=== PATIENT | male | born 1985 | race Caucasian/White ===

== ENCOUNTER 2018-01-04 18:55 | Emergency (ER) | payer SELFPAY ==
[2018-01-04 19:00] VITALS: BP 144/84; PULSE 63; RESP 20; TEMP 36.6; O2SAT 98
[2018-01-04] MEDS: Tetracaine 0.5% 4 ML BTL (19:16)
--- NOTE | 2018-01-04 19:26 | ED.GENADUL_ITS ---
Discharge Plan Discharge Details Chief Complaint: EyeProblem Primary Care Provider: NONE,NONE ED Provider: Yordan Scott Home Meds and New Rx's Prescriptions: No Action No Known Home Meds RF: 0 Medical Decision Making 32-year-old male presents with right eye conjunctival injection after being poked in the eye with a stick yesterday. He has a negative Ronn sign. No evidence of foreign body persistently, but there is evidence of right lateral corneal abrasion outside the axis of vision. Discussed manage with him including use of erythromycin ointment. He stable for discharge. Return for any concerns. Tetanus booster given. HPI General Mode of arrival: ambulatory . Date/Time Provider Initiated Documentation: 01/04/18 19:15 . Limitations to Documentation: no limitations . Information obtained by: patient . History of Present Illness 32 year old M presents to the emergency department with the chief complaint of Right eye injury, described as moderate, Quality is described as aching, and is localized to the right. No relieving factors improve symptom(s), No exacerbating factors reported . 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 He returned yesterday and was struck in the right eye by a tree branch. Since that time he has mild pain that improved today associated with watery discharge. No other injury and patient has otherwise been well. He requires tetanus booster Related Data Home Medications Medication Instructions Recorded Confirmed Unknown [No Known Home Meds] 01/04/18 01/04/18 Allergies Allergy/AdvReac Type Severity Reaction Status Date / Time Sulfa (Sulfonamide Allergy Mild Skin Rash Unverified 01/04/18 19:06 Antibiotics) General Stated Complaint: EyeProblem COREY: 4 Review of Systems Review of Systems 8 systems reviewed and otherwise neg PFSH Social History Smoking/Tobacco Use Status: Never Exam Narrative Exam Narrative: GEN: awake, alert, oriented 3. Pleasant, well groomed, interactive. HEAD: Normocephalic, atraumatic ENT: Mucous membranes moist, oropharynx unremarkable, External ear exam unremarkable EYES: PERRL, EOMI, right conjunctival injection, there is negative Ronn sign, fluorescein exam reveals right lateral corneal abrasion without evidence of foreign body NECK: Full ROM, no IGLMAR, no menigismus EXT: Full ROM, no edema, no rash Neuro: Grossly normal neurologic exam, conversant, interactive. Psych: Speech fluent, thoughts congruent, affect normal Course Vital Signs Temperature 36.6 C 01/04/18 19:00 Pulse 63 01/04/18 19:00 Respiratory Rate 20 01/04/18 19:00 Blood Pressure 144/84 H 01/04/18 19:00 Pulse Oximetry 98 01/04/18 19:00 Temperature 36.6 C 01/04/18 19:00 Temperature Source Skin 01/04/18 19:00 Pulse 63 01/04/18 19:00 Respiratory Rate 20 01/04/18 19:00 Respiratory Effort Non-Labored 01/04/18 19:05 Blood Pressure 144/84 H 01/04/18 19:00 Blood Pressure Position Sitting 01/04/18 19:00 Pulse Oximetry 98 01/04/18 19:00 Oxygen Delivery Method Room Air 01/04/18 19:00 Oxygen Flow Rate 0 01/04/18 19:00 Pain Level 1 01/04/18 19:00
[2018-01-04] MEDS: Erythromycin Ophth Oint 3.5 GM TUBE OD (19:32)
[2018-01-04] MEDS: Tetanus & Diphtheria Tox,ADULT 0.5 ML VIAL IM (19:36)
== END 2018-01-04 19:41 | disposition home or self-care (01) ==
PROVIDERS: Emergency Provider Emergency Medicine
DX: S05.01XA Injury of conjunctiva and corneal abrasion without foreign body, right eye, initial encounter (principal); W22.8XXA Striking against or struck by other objects, initial encounter
CPT/HCPCS: 90471; 99284; 99283

== ENCOUNTER 2019-09-30 11:54 | Emergency (ER) | payer SELFPAY ==
[2019-09-30] VITALS (44 sets, daily range): BP systolic 104–144; BP diastolic 64–94; PULSE 53–96; RESP 10–26; TEMP 36.5; O2SAT 96–100
[2019-09-30] MEDS: EPINEPHrine 1 MG/ML AMP pres-free (12:13)
[2019-09-30] MEDS: diphenhydrAMINE 50 MG/ML VIAL IVP (12:13)
[2019-09-30] MEDS: methylPREDNISolone SUCC 125 MG VIAL IVP (12:13)
--- NOTE | 2019-09-30 12:13 | ED.GENADUL_ITS ---
Discharge Plan Disposition Patient Disposition: HOME Condition: Stable Discharge Details Chief Complaint: Allergic Clinical Impression: Hymenoptera allergy, Anaphylactic reaction Primary Care Provider: None,None ED Provider: Garrison Cardoso Home Meds and New Rx's Prescriptions: New prednisone 20 mg tablet 40 mg PO DAILY Qty: 8 RF: 0 epinephrine [EpiPen 2-Emil] 0.3 mg/0.3 mL auto-injector 0.3 mg IM ONCE PRN (Reason: anaphylaxis) Qty: 1 RF: 0 epinephrine [Auvi-Q] 0.3 mg/0.3 mL auto-injector 0.3 mg IM ONCE PRN (Reason: anaphylaxis) Qty: 1 RF: 0 Discharge Instructions Instructions: Anaphylaxis (ED) Additional Instructions: Please drink plenty fluids stay hydrated. Take Benadryl 25 mg every 6-8 hours for the next 3 days. Take prednisone as prescribed. Your next dose is tomorrow. Use EpiPen or Auvi-Q as prescribed for any future anaphylactic allergic reaction. Please contact your primary care physician to arrange follow-up. Return to the ER for any worsening or new concerning symptoms. Discharge Data Discharge Date/Time-TO BE ENTERED AT DEPARTURE: 09/30/19 16:03 Medical Decision Making 1218??33-year-old male arrives after being stung by a hornet in his left shoulder with anaphylaxis. Patient took EpiPen 45 minutes ago and is continued on symptoms. Throat swelling has improved. I will give additional dose of epinephrine, IV fluid bolus, Pepcid IV and Benadryl IV. Plan to reassess. Stinger was removed from left upper arm. --Patient reassessed and symptoms improving. 1515 --patient reassessed and symptoms completely resolved. Rash resolved. No oropharyngeal swelling. Nausea resolved in fact patient is hungry. --Reassessment remained stable. Plan for discharge with outpatient follow-up. Patient notes he does not have a primary care physician -will ask that sarah gutiérrez assist in arranging for the patient to have a primary care physician going forward. Disposition decision was made weighing the risks and benefits of hospitalization versus outpatient treatment, the risk for further decompensation, and the patient's wishes. The patient was stable and requested discharge. Prior to discharge, my usual and customary return precautions were reviewed with the patient - this included follow-up instructions and reason to return to the emergency department if condition worsens, does not improve as expected, or other new concerns arise. HPI General Mode of arrival: ambulatory . Date/Time Provider Initiated Documentation: 09/30/19 12:00 . Limitations to Documentation: no limitations . Information obtained by: patient . HPI Narrative: 33-year-old male presents with chief complaint of allergic reaction. Patient notes he was stung by a hornet in his left shoulder about 1 hour prior to arrival. He developed full body rash, lip and tongue swelling with throat swelling and associated nausea and vomiting. He used an EpiPen, injected to his right thigh. He took some Benadryl but vomited this. He notes symptoms were severe and are now moderate. Throat swelling is much improved. He continues to have itchy rash and feels nauseous. Related Data Home Medications Medication Instructions Recorded Confirmed epinephrine [Auvi-Q] 0.3 mg IM ONCE PRN #1 each 09/30/19 epinephrine [EpiPen 2-Emil] 0.3 mg IM ONCE PRN #1 each 09/30/19 prednisone 40 mg PO DAILY #8 tab 09/30/19 Previous Rx's Medication Instructions Recorded epinephrine [Auvi-Q] 0.3 mg IM ONCE PRN #1 each 09/30/19 epinephrine [EpiPen 2-Emil] 0.3 mg IM ONCE PRN #1 each 09/30/19 prednisone 40 mg PO DAILY #8 tab 09/30/19 Allergies Allergy/AdvReac Type Severity Reaction Status Date / Time bee venom protein (honey bee) Allergy Severe Anaphylaxsi Unverified 09/30/19 12:16 s Sulfa (Sulfonamide Allergy Mild Skin Rash Unverified 01/04/18 19:06 Antibiotics) General Stated Complaint: Allergic COREY: 2 Review of Systems All systems reviewed & are unremarkable except as noted in HPI and below ENT Ears, Nose, Mouth, and Throat: Reports as per HPI Cardiovascular Cardiovascular: Denies dyspnea Respiratory Respiratory: Denies cough and Denies dyspnea [facility] Social History Smoking/Tobacco Use Status: Current-Occasional Alcohol Intake: current Alcohol Intake frequency: 3 or more drinks per day Drug use: Daily Substance use type: marijuana Do you feel safe in your relationship?: Yes Exam Const General: cooperative and no acute distress HENMT Mouth: lip normal, tongue normal, oropharynx normal and moist mucous membranes Throat: posterior oropharynx normal Eyes Conjunctivae: normal conjunctivae Sclera: normal sclerae Neck Neck: trachea midline and supple Resp Auscultation: clear to auscultation bilaterally, no rales, no rhonchi and no wheezes Cardio Jugular venous pressure: no JVD Rate: regular rate and not tachycardic Rhythm: regular rhythm GI Palpation: soft, not firm, no guarding, no masses, not rigid and nontender Skin Rashes: rashes noted (Urticarial rash full-body) Neuro General: patient alert, patient awake, patient oriented x3 and tone normal Extrem General: no edema Left upper extremity: shoulder/upper arm (small retained stinger left shoulder, stinger removed with tweezers) Psych Appearance: grossly normal Mental Status: mental status grossly normal Speech and Movement: speech and movement normal Course Vital Signs Vital signs: Vital Signs Temperature 36.5 C 09/30/19 12:00 Pulse 83 09/30/19 12:00 Respiratory Rate 20 09/30/19 12:00 Blood Pressure 134/94 H 09/30/19 12:00 Pulse Oximetry 97 09/30/19 12:00 Temperature 36.5 C 09/30/19 12:00 Temperature Source Skin 09/30/19 12:00 Pulse 83 09/30/19 12:00 Respiratory Rate 20 09/30/19 12:00 Respiratory Effort Non-Labored 09/30/19 12:08 Blood Pressure 134/94 H 09/30/19 12:00 Blood Pressure Position Sitting 09/30/19 12:00 Pulse Oximetry 97 09/30/19 12:00 Oxygen Delivery Method Room Air 09/30/19 12:00 Oxygen Flow Rate 0 09/30/19 12:00
[2019-09-30] MEDS: Ondansetron 4 MG/2 ML VIAL IVP (12:14)
[2019-09-30] MEDS: FAMOTIDINE 20 MG/50 ML BAG 200 MG IVPB (12:14)
[2019-09-30] MEDS: Normal Saline 1,000 ML 1000 ML IV (12:14)
== END 2019-09-30 16:03 | disposition home or self-care (01) ==
PROVIDERS: Emergency Provider Student in an Organized Health Care Education/Training Program
DX: T78.2XXA Anaphylactic shock, unspecified, initial encounter (principal); T63.451A Toxic effect of venom of hornets, accidental (unintentional), initial encounter; Z91.030 Bee allergy status; L50.0 Allergic urticaria; R11.2 Nausea with vomiting, unspecified; R22.1 Localized swelling, mass and lump, neck
CPT/HCPCS: 96361; 96365; 96375; 99284; J0171; J1200; J2405; J2930

== ENCOUNTER 2019-09-30 20:26 | Emergency (ER) | payer SELFPAY ==
[2019-09-30] VITALS (13 sets, daily range): BP systolic 100–153; BP diastolic 66–88; PULSE 70–120; RESP 10–20; TEMP 36.2–36.9; O2SAT 97–100
[2019-09-30] MEDS: diphenhydrAMINE 50 MG/ML VIAL IVP (21:05)
--- NOTE | 2019-09-30 21:16 | ED.GENADUL_ITS ---
Discharge Plan Disposition Patient Disposition: HOME Condition: Good Discharge Details Chief Complaint: Allergic Clinical Impression: Allergic reaction, Rash and nonspecific skin eruption Primary Care Provider: None,None ED Provider: Zaheer Chen Home Meds and New Rx's Prescriptions: Continued prednisone 20 mg tablet 40 mg PO DAILY Qty: 8 RF: 0 epinephrine [EpiPen 2-Emil] 0.3 mg/0.3 mL auto-injector 0.3 mg IM ONCE PRN (Reason: anaphylaxis) Qty: 1 RF: 0 epinephrine [Auvi-Q] 0.3 mg/0.3 mL auto-injector 0.3 mg IM ONCE PRN (Reason: anaphylaxis) Qty: 1 RF: 0 Discharge Instructions Instructions: General Allergic Reaction (ED) Additional Instructions: At this time you show no evidence of return of your anaphylactic symptoms. Please continue to take 25 mg of Benadryl every 6 hours. Take your prednisone as directed. You will be given an EpiPen to go home with. I suspect that your rash will resolve completely over the next 24 to 48 hours. If you notice any worsening of your symptoms, or any new symptoms such as vomiting, diarrhea, fever, chills, shortness of breath, chest pain, numbness, weakness, or fainting , please return immediately to the emergency department for reevaluation. Please follow up with your primary care provider as soon as possible for reassessment and reevaluation. As always, it was a pleasure participating in your medical care today. 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 Earlier today at noon the patient was stung by a hornet, a stinger was persistently present however the insects thorax was not, the patient does confirm that it was a hornet not a bee. Stinger was removed, patient took a self administer dose of epinephrine in the field, and then upon his presentation to the emergency department he still had symptoms of mild throat tightness, mildly swollen tongue, and hives. He was given a repeat dose of IM epinephrine, Pepcid, Solu-Medrol and Benadryl. He was evaluated for 4 hours, subsequently discharged home, and then 3 to 4 hours after discharge had a return of his hives. He came back to the ER for further assessment. The patient denies any complaints of nausea vomiting diarrhea throat swelling tongue swelling difficulty controlling secretions chest tightness heaviness wheeze or other complaints. His only symptoms are the hives which have returned. No other complaints or modifying factors at this time. Physical exam demonstrates notable hives over his chest abdomen arms and legs. No other signs of anaphylaxis whatsoever. No current clinical indication for repeat dosing of epinephrine. Benadryl here again, and continue to monitor closely. I do feel he would be safe to discharge however I think it is important to evaluate for an additional 4 hours to make sure there is no return of his true anaphylactic-like symptoms. 11:45 PM Extended observation. The patient remains clinically well, no signs of anaphylaxis whatsoever. No throat swelling, edema, hyper secretions, nausea, vomiting, or diarrhea. Patient's rash is mildly improved. He has no itchiness. Small amount of notably blanchable rash is still present, no oral lesions. No other complaints. Patient is feeling well and is asking to go home. Patient will be given an EpiPen here for home use. Recommend they continue his prescriptions of prednisone at home, as well as recommendations for Benadryl every 6 hours as needed. Discussed red flags for which to return. With no evidence of repeat anaphylaxis patient will be discharged home. I have ex tensively reviewed the treatment plan and discharge instructions with the patient. I have addressed all patient concerns at this time. The patient was made aware of what symptoms to monitor for that would warrant a return to the emergency department. Discussed the plan with the patient, they demonstrate verbal understanding and agreement with our assessment and plan at this time. HPI General Date/Time Provider Initiated Documentation: 09/30/19 20:30 . 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 Earlier today at noon the patient was stung by a hornet, a stinger was persistently present however the insects thorax was not, the patient does confirm that it was a hornet not a bee. Stinger was removed, patient took a self administer dose of epinephrine in the field, and then upon his presentation to the emergency department he still had symptoms of mild throat tightness, mildly swollen tongue, and hives. He was given a repeat dose of IM epinephrine, Pepcid, Solu-Medrol and Benadryl. He was evaluated for 4 hours, subsequently discharged home, and then 3 to 4 hours after discharge had a return of his hives. He came back to the ER for further assessment. The patient denies any complaints of nausea vomiting diarrhea throat swelling tongue swelling difficulty controlling secretions chest tightness heaviness wheeze or other complaints. His only symptoms are the hives which have returned. No other complaints or modifying factors at this time. Related Data Home Medications Medication Instructions Recorded Confirmed epinephrine [Auvi-Q] 0.3 mg IM ONCE PRN #1 each 09/30/19 09/30/19 epinephrine [EpiPen 2-Emil] 0.3 mg IM ONCE PRN #1 each 09/30/19 09/30/19 prednisone 40 mg PO DAILY #8 tab 09/30/19 09/30/19 Previous Rx's Medication Instructions Recorded epinephrine [Auvi-Q] 0.3 mg IM ONCE PRN #1 each 09/30/19 epinephrine [EpiPen 2-Emil] 0.3 mg IM ONCE PRN #1 each 09/30/19 prednisone 40 mg PO DAILY #8 tab 09/30/19 Allergies Allergy/AdvReac Type Severity Reaction Status Date / Time bee venom protein (honey bee) Allergy Severe Anaphylaxsi Unverified 09/30/19 20:34 s Sulfa (Sulfonamide Allergy Mild Skin Rash Unverified 09/30/19 20:34 Antibiotics) General Stated Complaint: Allergic COREY: 2 Review of Systems All systems reviewed & are unremarkable except as noted in HPI and below PFSH Social History Smoking/Tobacco Use Status: Current-Occasional Alcohol Intake: current Alcohol Intake frequency: 3 or more drinks per day Drug use: Daily Substance use type: marijuana Do you feel safe at home: Yes Do you feel safe in your relationship?: Yes Exam Narrative Exam Narrative: 1.Const: Well-nourished, Well-developed, appearing stated age 2.Eyes: PERRL, no conjunctival injection, and symmetrical lids. 3.ENT: Atraumatic external nose and ears. Moist MM. Neck: Symmetric, trachea midline, No thyromegaly. No swelling of the mouth posterior pharynx or tongue, no signs of angioedema or hyper secretions. No evidence of airway compromise. 4.CVS: +S1/S2, No murmurs or gallops. Peripheral pulses 2+ and equal in all extremities. Brisk capillary refill in all extremities. 5.RESP: Unlabored respiratory effort. Clear to auscultation bilaterally. No wheezes rales or rhonchi 6.GI: Soft, Nontender/Nondistended, No hepatosplenomegaly. No guarding or rebound. 7.MSK: Normocephalic/Atraumatic, Extremities w/o deformity or ttp No cyanosis or clubbing, Normal movement of all extremities 8.Skin: Warm, Dry. Patient demonstrates notable hives over his anterior chest arms and legs. No lesions on the mucous membranes. Easily blanchable. Negative Nikolsky sign. No large vesicles or bulla. No palpable purpura. No oral lesions. No mucosal lesions. No evidence of severe cellulitis. No evidence of vaccine preventable rash. 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 Sensation grossly intact, no focal neurologic deficits. 10.Psych: (AAO) x3. Appropriate mood and affect Course Vital Signs Vital signs: Vital Signs Temperature 36.9 C 09/30/19 20:30 Pulse 120 H 09/30/19 20:30 Respiratory Rate 20 09/30/19 20:30 Blood Pressure 153/88 H 09/30/19 20:30 Pulse Oximetry 97 09/30/19 20:30 Temperature 36.9 C 09/30/19 20:30 Temperature Source Skin 09/30/19 20:30 Pulse 120 H 09/30/19 20:30 Respiratory Rate 20 09/30/19 20:30 Respiratory Effort Non-Labored 09/30/19 20:32 Respiratory Pattern Normal 09/30/19 20:32 Blood Pressure 153/88 H 09/30/19 20:30 Blood Pressure Position Sitting 09/30/19 20:30 Pulse Oximetry 97 09/30/19 20:30 Oxygen Delivery Method Room Air 09/30/19 20:30 Oxygen Flow Rate 0 09/30/19 20:30 Pain Level 3 09/30/19 20:30
[2019-09-30] MEDS: Normal Saline 500 ML IV (21:37)
[2019-09-30] MEDS: EPINEPHrine 0.3 MG KIT IM (23:59)
[2019-10-01] VITALS: BP 135/77; PULSE 76; RESP 14; TEMP 36.8; O2SAT 98
--- NOTE | 2019-10-01 10:14 | CMPROGNOTE_ITS ---
- If Service Date Differs Date of service: 10/01/19 Time of Service: 10:14 Care Management Progress Note At the request of ED provider, CM coordinates a referral to [facility] (teledoc) to assist Garirson in establishing care with a PCP. CM also coordinates a referral to [employer] for help applying for health insurance, as Garrison is listed in self-pay.
== END 2019-10-01 | disposition home or self-care (01) ==
PROVIDERS: Emergency Provider Student in an Organized Health Care Education/Training Program
DX: L50.0 Allergic urticaria (principal); T63.451A Toxic effect of venom of hornets, accidental (unintentional), initial encounter
CPT/HCPCS: 96361; 96372; 96374; 99284; 99283; J0171; J1200

== ENCOUNTER 2023-08-09 05:48 | Outpatient (CLI) | payer OTHER, SELFPAY ==
[2023-08-09 12:24] LABS: Hemoglobin A1C 5.8 % (<5.7)
[2023-08-09 12:25] LABS: Calculated LDL 97 mg/dL (<100); Cholesterol 171 mg/dL (<200); HDL Cholesterol 68 mg/dL (40-60); Triglyceride 31 mg/dL (<150)
== END 2023-08-09 05:49 | disposition home or self-care (01) ==
PROVIDERS: PCP Nurse Practitioner Family; Visit Provider Nurse Practitioner Family
DX: Z13.220 Encounter for screening for lipoid disorders (principal); Z13.1 Encounter for screening for diabetes mellitus
CPT/HCPCS: 36415; 80061; 83036